=== PATIENT | female | born 1980 | race Caucasian/White ===

== ENCOUNTER → 2017-08-22 | Outpatient (CLI) | payer OTHER ==
[~2017-08-22] VITALS: Ht 152.4 cm; Wt 61.2 kg
[~2017-08-22] MED LIST: AMBIEN10 MG; AMBIEN10 MG PO; APAP; BENADRYL25 MG PO; BUTALBITAL; CLONAZEPAM0.5 MG; CONEX TABLET1 EACH PO; DEPAKOTE ER250 MG; ESTRADIOL2 MG; IMODIUM A-D2 MG PO; IOPHEN DM-100 MG/5 M PO; KLONOPIN0.5 MG/TAB PO; KLONOPIN1 MG/TAB PO; NEURONTIN800 MG PO; PEPCID40 MG PO; PROTONIX20 MG PO; RESTORIL30 MG; TESSALON PERLE100 MG PO; VALISONE15 GM TP; ZOFRAN4 MG PO; [UNRECOGNIZED DRUG - OTHER]
== END | disposition home or self-care (01) ==
LOC: PPHC 16:57
DX: J10.1 Influenza due to other identified influenza virus with other respiratory manifestations (principal)

== ENCOUNTER 2018-11-22 12:58 | Inpatient (IN) | payer OTHER ==
[~2018-11-22] VITALS: Ht 157.5 cm; Wt 73.5 kg
[2018-11-23] MEDS ORDERED: BUTALB-ACETAMI1 EAC2 PO (16:56)
[2018-11-29] MEDS ORDERED: DOXYCYCLINE HY100 M2 PO (14:56)
== END 2018-11-29 14:59 | disposition home or self-care (01) | DRG 392 ==
LOC: ER 12:58 → MEDJ 11-23 11:01 → SEC-K 11-23 11:01 → MEDJ 11-23 12:34
PROVIDERS: ADMIT Internal Medicine
PROC: 8E0ZXY6 Isolation (ICD-10-PCS; principal; 2018-11-23)
PROC: B54NZZZ Ultrasonography of Left Upper Extremity Veins (ICD-10-PCS; 2018-11-23)
DX: A08.0 Rotaviral enteritis (principal); I82.612 Acute embolism and thrombosis of superficial veins of left upper extremity; E78.49 Other hyperlipidemia; E86.0 Dehydration; D64.89 Other specified anemias

== ENCOUNTER 2020-09-12 10:57 | Emergency (ER) | payer OTHER ==
[~2020-09-12] VITALS: Ht 160 cm; Wt 64.4 kg
[~2020-09-12 10:57] MED LIST changes: +BUTALB-ACETAMI1 EAC2 PO; +DOXYCYCLINE HY100 M2 PO
[2020-09-12] MEDS ORDERED: ZITHROMAX500 MG PO (16:22)
== END 2020-09-12 16:45 | disposition home or self-care (01) ==
LOC: ER 10:57
DX: K29.60 Other gastritis without bleeding (principal); Z20.822 Contact with and (suspected) exposure to COVID-19

== ENCOUNTER 2024-10-30 13:12 | Emergency (ER) | payer OTHER ==
[~2024-10-30] VITALS: Ht 160 cm; Wt 61.2 kg
[~2024-10-30 13:12] MED LIST changes: +ZITHROMAX500 MG PO
[2024-10-30] MEDS ORDERED: BARIUM SULFATE 450 ML ORAL.SUSP PO ONE (16:29)
[2024-10-30] MEDS ORDERED: 0.9 % SODIUM CHLORIDE 1,000 ML IV SCH (16:30)
[2024-10-30] MEDS ORDERED: ONDANSETRON HCL 2 MG/ML VIAL ONE (17:02)
[2024-10-30] MEDS ORDERED: FAMOTIDINE/PF 20 MG/2 ML VIAL ONE (17:02)
[2024-10-30 17:09] LABS: HEMATOCRIT 39.6 % (36.0-45.00); HEMOGLOBIN 13.8 g/dL (12.0-15.00); MEAN CELL VOLUME 87.9 fL (80.00-100.00); MEAN CORPUSCULAR HEMOGLOBIN 30.5 pg (27.00-32.0); MEAN CORPUSCULAR HGB CONC 34.8 g/dl (32.0-36.0); PLATELET COUNT 220 K/uL (150-450); RED CELL DISTRIBUTION WIDTH 12.3 % (11.5-14.5)
[2024-10-30] MEDS ORDERED: FAMOTIDINE/PF 20 MG in 0.9 % SODIUM CHLORIDE 8 ML IV PUSH STA (17:18)
[2024-10-30] MEDS ORDERED: ONDANSETRON HCL 2 MG/ML VIAL IV STA (17:18)
[2024-10-30 17:26] LABS: CALCIUM 9.1 mg/dL (8.5-10.1); CREATININE SERUM 0.66 mg/dL (0.55-1.02); GFR 96.41; POTASSIUM 3.93 mEq/L (3.5-5.1)
[2024-10-30 18:52] LABS: URINE APPEARANCE Clear; URINE BILIRRUBIN Negative (NEGATIVE); URINE BLOOD Moderate; URINE COLOR Yellow; URINE GLUCOSE Negative (NEGATIVE); URINE KETONE Negative (NEGATIVE); URINE LEUKOCYTE Negative; URINE NITRATE Negative; URINE PROTEIN Negative (NEGATIVE); URINE UROBILINOGEN 0.2 E.U./dl
[2024-10-30 18:56] LABS: URINE BACTERIA 423.4 uL (0.0-1933); URINE EPITHELIAL CELLS 15.5 uL (0.0-38.8); URINE RBC 36.8 uL (0.0-20.8); URINE WBC 10.4 uL (0.0-23.2)
[2024-10-30] MEDS ORDERED: MEPERIDINE HCL/PF 50 MG/ML VIAL IM ONE (19:00)
[2024-10-30] MEDS ORDERED: PROMETHAZINE HCL 50 MG/ML AMPUL IM ONE ×2 (19:00→19:15)
== END 2024-10-30 22:44 | disposition home or self-care (01) ==
LOC: ER 13:12
PROVIDERS: Emergency Medicine
DX: K62.5 Hemorrhage of anus and rectum (principal); K64.8 Other hemorrhoids; Z91.041 Radiographic dye allergy status; Z88.2 Allergy status to sulfonamides; Z88.6 Allergy status to analgesic agent; F32.89 Other specified depressive episodes